=== PATIENT | female | born 1940 | race Caucasian/White ===

== ENCOUNTER 2024-03-16 13:43 | Day surgery (SDC) | payer MEDICARE, OTHER ==
[2024-03-13 09:15] LABS: BASOPHILS % (AUTO) 0.5 % (0-1); EOSINOPHILS # (AUTO) 0.3 X10'3 (0-0.9); EOSINOPHILS % (AUTO) 3.9 % (0-6); HEMATOCRIT 33.5 % (35.0-45.0); HEMOGLOBIN 11.2 g/dl (12.0-16.0); LYMPHOCYTES # (AUTO) 0.8 X10'3 (1.1-4.8); LYMPHOCYTES % (AUTO) 10.8 % (21-51); MEAN CORPUSCULAR HEMOGLOBIN 29.2 PG (27.0-31.0); MEAN CORPUSCULAR HGB CONC 33.4 g/dL (33.0-36.5); MEAN CORPUSCULAR VOLUME 87.4 FL (78-98); MONOCYTES # (AUTO) 0.5 X10'3 (0-0.9); MONOCYTES % (AUTO) 6.6 % (2-12); NEUTROPHILS # (AUTO) 5.5 X10'3 (1.8-7.7); NEUTROPHILS % (AUTO) 78.2 % (42-75); PLATELET COUNT 296 X10'3 (140-440); RED BLOOD COUNT 3.83 X10'6 (4.20-5.60)
[2024-03-13 09:30] LABS: APTT 30 SECONDS (22-32); PROTHROMBIN TIME 10.8 SECONDS (9.0-12.0)
[2024-03-13 09:46] LABS: ALBUMIN 3.5 G/DL (3.4-5.0); ANION GAP 8 (8-16); BLOOD UREA NITROGEN 17 MG/DL (7-18); CALCIUM 9.2 MG/DL (8.5-10.1); CHLORIDE 107 MMOL/L (99-107); CHOLESTEROL 127 MG/DL (0-200); CREATININE 1.06 MG/DL (0.40-0.90); GLUCOSE 103 MG/DL (70-104); HDL CHOLESTEROL 62 MG/DL (35-60); LDL CHOLESTEROL 59 MG/DL (50-100); POTASSIUM 4.4 MMOL/L (3.5-5.1); SODIUM 141 MMOL/L (135-145); TOTAL CARBON DIOXIDE 26.3 MMOL/L (24-32); TRIGLYCERIDES 67 MG/DL (20-135); eGFR 50 ML/MIN
[~2024-03-16] VITALS: Ht 157.5 cm; Wt 56.8 kg
[2024-03-16] VITALS (7 sets, daily range): BP systolic 107–149; BP diastolic 51–90; PULSE 65–106; RESP 16; TEMP 97.9; O2SAT 94–98
[~2024-03-16 13:43] MED LIST: ASPI-1265 PO; ATOR40TA72 PO; CARB1TAB60 PO; CLOP75TA34 PO; OMEP20TA23 PO
[2024-03-16] MEDS ORDERED: CLOP-32 PO (14:04)
[2024-03-16] MEDS ORDERED: LORazepam 0.5 MG tablet PO PRN (14:25)
[2024-03-16] MEDS ORDERED: heparin 1,000unit/ml 10ml vial 10 ML ONE (16:09)
[2024-03-16] MEDS ORDERED: phenylephrine 10mg/ml inj. ONE (16:09)
[2024-03-16] MEDS ORDERED: iohexol 350MG/ML 100ml bottle IV ONE ×3 (16:09→17:16)
[2024-03-16] MEDS: diphenhydrAMINE 25mg capsule PO PRN (16:20)
[2024-03-16] MEDS: normal saline 1,000 ML IV SCH (16:20)
[2024-03-16] MEDS ORDERED: LIDOcaine 1% 30ml preserv. free vial ONE (16:25)
[2024-03-16] MEDS ORDERED: midazolam 1 mg/ML 2ml injection ONE (17:26)
[2024-03-16] MEDS ORDERED: fentaNYL/PF 50MCG/1 ML 2ML syringe ONE (17:26)
[2024-03-16] MEDS ORDERED: clopidogrel 300mg tablet ONE (18:00)
== END 2024-03-16 20:00 | disposition home or self-care (01) ==
LOC: SSTAY O 13:43
PROVIDERS: ATTEND Internal Medicine Interventional Cardiology
DX: I65.23 Occlusion and stenosis of bilateral carotid arteries (principal); I70.8 Atherosclerosis of other arteries; I48.91 Unspecified atrial fibrillation; I49.3 Ventricular premature depolarization; G20.A1 Parkinson's disease without dyskinesia, without mention of fluctuations; I10 Essential (primary) hypertension; E78.5 Hyperlipidemia, unspecified; Z79.01 Long term (current) use of anticoagulants; Z88.6 Allergy status to analgesic agent; Z79.82 Long term (current) use of aspirin; Z98.890 Other specified postprocedural states; Z79.899 Other long term (current) drug therapy
CPT/HCPCS: 36223; 36415; 37236; 80048; 80061; 85025; 85610; 85730; 93005; A6258; C1725; C1751; C1760; C1769; C1876; J1644; J2003; J2250; J2371; J3010; J7030; Q0163; Q9967; Z7610; 36216; 36222; 37238; 75625; 75710; 99152; 99153; J2370

== ENCOUNTER 2024-04-29 11:28 | Outpatient (CLI) | payer MEDICARE, OTHER ==
[~2024-04-29 11:28] MED LIST changes: +CLOP-32 PO; -CLOP75TA34 PO
[2024-04-29 12:33] LABS: ALBUMIN 3.8 G/DL (3.4-5.0); ANION GAP 9 (8-16); BLOOD UREA NITROGEN 18 MG/DL (7-18); BUN/CREATININE RATIO 20.5 (10.0-20.0); CALCIUM 9.4 MG/DL (8.5-10.1); CHLORIDE 105 MMOL/L (99-107); CREATININE 0.88 MG/DL (0.40-0.90); GLUCOSE 96 MG/DL (70-104); POTASSIUM 4.2 MMOL/L (3.5-5.1); SODIUM 140 MMOL/L (135-145); eGFR 62 ML/MIN
== END 2024-04-29 23:59 | disposition home or self-care (01) ==
LOC: LAB 11:28
PROVIDERS: ATTEND Internal Medicine Interventional Cardiology
DX: E78.5 Hyperlipidemia, unspecified (principal)
CPT/HCPCS: 36415; 80048

== ENCOUNTER 2024-11-01 14:47 | Emergency (ER) | payer MEDICARE, OTHER ==
[~2024-11-01] VITALS: Ht 157.5 cm; Wt 56.4 kg
[~2024-11-01 14:47] MED LIST changes: -ASPI-1265 PO; +DABI150C PO; +DILT30TA2 PO; +DOCU100C40 PO; +FURO-149 PO; +LEVO750T68 PO
[2024-11-01 15:05] VITALS: TEMP 98.5
[2024-11-01 15:42] LABS: LEUKOCYTE ESTERASE ,URINE SMALL (Neg); NITRITES, URINE NEGATIVE (Neg); OCCULT BLOOD,URINE NEGATIVE (Neg)
[2024-11-01 15:49] LABS: UA COLLECTION TYPE CLN CATCH MIDSTREAM
[2024-11-01 15:52] LABS: MUCUS STRANDS FEW /LPF (Neg); SQUAMOUS EPITHELIAL CELL,UR MANY /LPF (FEW)
[2024-11-01 16:07] LABS: MEAN PLATELET VOLUME 7.9 FL (7.4-10.4); RED CELL DISTRIBUTION WIDTH 16.9 % (11.5-14.5)
[2024-11-01 16:31] LABS: CREATININE 1.46 MG/DL (0.40-0.90); TOTAL CARBON DIOXIDE 24.1 MMOL/L (24-32); eCRCL 24 ML/MIN; eGFR 34 ML/MIN
[2024-11-01] MEDS ORDERED: iohexol 300mg/ml 100ml inj. ONE (17:06)
--- NOTE | 2024-11-01 18:36 | RADIOLOGY REPORT ---
DI CHEST,TWO VIEWS INDICATION: Productive cough TECHNIQUE: Two views of the chest COMPARISON: DI CHEST,SINGLE VIEW on DOS: 06/14/24 FINDINGS/IMPRESSION: LUNGS: Inconspicuous alveolar opacity possibly located within the right middle lobe MEDIASTINUM: Unremarkable BONES: No acute osseous abnormality OTHER: None
--- NOTE | 2024-11-01 18:40 | ELECTROCARDIOGRAPH REPORT ---
[facility] Test Date: 2024-11-01 Test Time: 18:37:47 Pat Name: DAYAN SALCEDO Department: [facility]- Patient ID: [facility]-[id number] Room: Gender: F Program Director: : 1940 Requested By: GOOD CLEMENTS Order Number: [id number] Reading MD: Measurements Intervals Daniel Rate: 90 P: 0 DC: 0 QRS: 61 QRSD: 84 T: 13 QT: 355 QTc: 435 Interpretive Statements Atrial fibrillation Borderline repolarization abnormality Please click the below link to view image of tracing.
--- NOTE | 2024-11-01 18:49 | RADIOLOGY REPORT ---
COMPUTERIZED TOMOGRAPHY ABDOMEN AND PELVIS WITH CONTRAST REASON FOR EXAM: Pain and pressure in lower abdomen with rectal bleeding. COMPARISON: None TECHNIQUE: The exam was performed on a Multidetector scanner. Spiral scans were acquired from the roz phragm to the symphysis pubis after administration of IV contrast. 2-D coronal and sagittal reformatt ed images were provided. Radiation optimization: All CT scans at this facility use at least one of th mayo dose optimization techniques: Automated exposure control mA and/or kV adjustment per patient size (includes targeted exams where dose is matched to clinical indication) or iterative reconstruction. CONTRAST ADMINISTRATION: 100 mL omnipaque 300 intravenously RADIATION DOSE: CTDI: 22 mGy DLP: 1107 mGy-cm FINDINGS: There is mild dependent atelectasis in bilateral lung bases. There is emphysematous change. There is no pleural effusion. There is no pericardial effusion. There is a large hiatal hernia containing th e majority of the stomach in the posterior mediastinum. The spleen is not enlarged. The liver is normal in size and contour. The portal vein is patent. No calcified gallstone is identified. There is no pericholecystic edema. The pancreas is unremarkable. The right adrenal gland is unremarkable. There is an indeterminate 1.2 cm nodule in the medial limb o f the left adrenal gland (greater than 80 Hounsfield units) that statistically likely represents a li pid poor adrenal adenoma. No solid renal mass is identified. The kidneys enhance symmetrically. Ther e is no hydronephrosis of either kidney. The urinary bladder is significantly distended. The uterus a nd ovaries are within normal limits. There is diffuse mural thickening of the lower portion of the re ctum. There is perirectal inflammatory change. There is extensive sigmoid diverticulosis without aureliano dence of diverticulitis. The colonic stool burden is moderate. The appendix is not seen. No free flui d is identified in the abdomen or pelvis. No pathologic lymphadenopathy is identified by size criteri a. No acute osseous abnormality is identified. There is severe, chronic appearing compression deformi ty of T12. IMPRESSION: Diffuse mural thickening of the lower portion of the rectum with surrounding inflammatory change, con sistent with proctitis. Upon completion of therapy, colonoscopy is recommended to rule out an underly ing mass. Moderate colonic stool burden. Correlate clinically for constipation.
[2024-11-01] MEDS ORDERED: POTA-366 PO (18:50)
[2024-11-01] MEDS ORDERED: DILT240T12 PO (18:52)
[2024-11-01] MEDS ORDERED: FURO40TA4 PO (18:52)
[2024-11-01] MEDS ORDERED: DABI150C PO (18:52)
--- NOTE | 2024-11-01 19:18 | Physician Documentation ---
History of Present Illness ~ Chief Complaint: Weakness Stated Complaint: CONSTIPATION, BLOOD IN STOOL Time Seen by MD: 15:31 Mode of Arrival: POV HPI This is an 84-year-old female that presents to the emergency department for rectal bleeding. Patient also reports that she has had increased cough and congestion over the last 2 days. Patient reports that she has chronic constipa tion issues. Patient reports that she manages that at home with laxatives and stool softeners. Reports that she has been unable to have a complete bowel movement for several days now and was able to pass a small amount of a hard ball of stool yesterday into her brief. Patient also noticed blood at that time in the toilet and then blood on her brief. Patient continues to have small amounts of blood on her brief as she changes them. Reports that she has had increased pressure in her lower abdomen particularly while standing. Patient denies history of hysterectomy or any gynecologic conditions. Patient denies history of hemorrhoids. Reports that she does take blood thinners. Medication Reconciliation Allergies: Coded Allergies: metoprolol (Verified Allergy, Severe, Pt stated causes to me to be out of it, 11/01/24) codeine (Verified Allergy, Unknown, 11/01/24) Scheduled Atorvastatin Calcium (Atorvastatin Calcium), 1 TAB PO DAILY, (Reported) Carbidopa/Levodopa (Carbidopa-Levodopa 25-100 Tab), 1 TAB PO TID, (Reported) Dabigatran Etexilate Mesylate (Pradaxa), 1 CAP PO Q12H, (Reported) Diltiazem HCl (Diltiazem ER), 1 TAB PO DAILY, (Reported) Furosemide (Furosemide), 1 TAB PO DAILY, (Reported) Omeprazole Magnesium (Prilosec Otc), 1 TAB PO DAILY, (Reported) Potassium Chloride (Potassium Chloride), 1 TAB PO DAILY, (Reported) Discontinued Medications Clopidogrel Bisulfate (Plavix), 1 TAB PO DAILY, (Reported) Discontinued Reason: patient no longer taking Dabigatran Etexilate Mesylate (Pradaxa), 1 CAP PO Q12H Discontinued Reason: Other Diltiazem HCl (Diltiazem HCl), 60 MG PO Q6H Discontinued Reason: Other Docusate Sodium (Docusate Sodium), 100 MG PO DAILY Discontinued Reason: patient no longer taking Furosemide (Lasix), 40 MG PO DAILY Discontinued Reason: Other Levofloxacin (Levofloxacin), 750 MG PO DAILY Discontinued Reason: ADR (Adverse Drug Rxn) Review of Systems ROS As stated above in the HPI, otherwise all systems are reviewed and negative. Physical Exam Vital Signs: Temperature: 98.5, Source: Temporal, Heart Rate: 89, Respiratory Rate: 14, BP: 139/74, Pulse Oximetry: 98, Weight: 56.360 Physical Exam VITALS: Reviewed and as above. GENERAL: Alert, no apparent distress. HEENT: Normocephalic, atraumatic, PERRL, EOMI, dry mucosa, no erythema RESPIRATORY: Lungs clear, normal breath sounds, no respiratory distress. 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 (Omnipaque-3 (11/01/24 17:06) Chest,Two Views (11/01/24 18:17) Stat Ekg (11/01/24 18:30) Vital Signs 11/01/24 11/01/24 15:05 16:10 Temp 98.5 Pulse 89 Resp 18 14 B/P (MAP) 139/74 Pulse Ox 98 Laboratory Tests Test 11/01/24 15:20 11/01/24 15:46 11/01/24 18:00 Urine Specimen Description Cln catch midstream Urine Color Yellow Urine Clarity Clear Urine pH 6.0 Urine Specific [place] 1.010 Urine Protein Negative Urine Glucose (UA) Negative Urine Ketones Negative Urine Occult Blood Negative Urine Nitrite Negative Urine Bilirubin Negative Urine Urobilinogen 0.2 Urine Leukocyte Esterase Small H Urine RBC 0-2 Urine WBC 0-4 Urine Squamous Epithelial Cells Many Urine Bacteria Few Urine Mucus Few Urine Culture Indicated Rejected for culture Volume Urine Centrifuged 10 ml Urine Comment White Blood Count 10.3 Red Blood Count 3.97 L Hemoglobin 10.9 L Hematocrit 32.4 L Mean Corpuscular Volume 81.5 Mean Corpuscular Hemoglobin 27.3 Mean Corpuscular Hemoglobin Concent 33.6 Red Cell Distribution Width 16.9 H Platelet Count 462 H Mean Platelet Volume 7.9 Neutrophils (%) (Auto) 83.6 H Lymphocytes (%) (Auto) 6.9 L Monocytes (%) (Auto) 7.9 Eosinophils (%) (Auto) 1.2 Basophils (%) (Auto) 0.4 Neutrophils # (Auto) 8.6 H Lymphocytes # (Auto) 0.7 L Monocytes # (Auto) 0.8 Eosinophils # (Auto) 0.1 Basophils # (Auto) 0.0 CBC Comment Sodium Level 135 Potassium Level 4.0 Chloride Level 99 Carbon Dioxide Level 24.1 Anion Gap 12 Blood Urea Nitrogen 22 H Creatinine 1.46 H Estimated GFR/1.73 m2 34 BUN/Creatinine Ratio 15.1 Glucose Level 117 H Calcium Level 9.5 Total Bilirubin 0.7 Aspartate Amino Transf (AST/SGOT) 18 Alanine Aminotransferase (ALT/SGPT) < 6 L Alkaline Phosphatase 109 Total Protein 7.8 Albumin 4.0 Globulin 3.8 Albumin/Globulin Ratio 1.1 Chemistry Comments SARS-CoV-2 Antigen (Rapid) Negative Medical Decision Making Findings This patient has a presentation consistent with rectal bleeding, most likely due to internal and external hemorrhoids. Low suspicion for inflammatory bowel disorder, rectal ulcer (HIV, syphilis, STI) or rectal foreign body. Presentation not consistent with other acute, emergent causes of upper or lower GI bleeding. No evidence of hemorrhagic shock. CT is negative for obvious signs of bleeding at this time. No signs of prolapse or any other gynecologic concerns at this time. Patient does have a mild urinary tract infection that we will treat her for. Radiologist suggests follow up colonoscopy. Patient's laboratory values are stable and not concerning for anemia at this time. We will follow up with her primary care provider. Patient will return to the emergency department with any worsening or recurrent symptoms or any additional concerning symptoms that we discussed here today i.e. increased bleeding increased abdominal pain shortness of breath lightheadedness or any other concerning symptoms. Differential Dx:Considerations: Include: anemia, CVA, dehydration, dysrhythmia, electrolyte imbalance, encephalopathy, Guillain-[place], hypoglycemia, hypotension, hypovolemia, labyrinthitis, Meniere's disease, myasathenia gravis, myocardial infarction, pulmonary embolus, renal failure, respiratory failure, TIA, VBI, vertigo central, vertigo peripheral, vestibular neuronitis, other Departure Disposition: HOME / SELF CARE / HOMELESS Impression: Primary Impression: Chronic constipation Additional Impressions: External hemorrhoid Internal hemorrhoids Acute urinary tract infection Condition: Stable Discharge Instructions: Urinary Tract Infection, Adult Additional Instructions: This patient has a presentation consistent with rectal bleeding, most likely due to internal and external hemorrhoids. Low suspicion for inflammatory bowel disorder, rectal ulcer (HIV, syphilis, STI) or rectal foreign body. Presentation not consistent with other acute, emergent causes of upper or lower GI bleeding. No evidence of hemorrhagic shock. CT is negative for obvious signs of bleeding at this time. No signs of prolapse or any other gynecologic concerns at this time. Patient does have a mild urinary tract infection that we will treat her for. Radiologist suggests follow up colonoscopy. Patient's laboratory values a re stable and not concerning for anemia at this time. We will follow up with her primary care provider. Patient will return to the emergency department with any worsening or recurrent symptoms or any additional concerning symptoms that we discussed here today i.e. increased bleeding increased abdominal pain shortness of breath lightheadedness or any other concerning symptoms. Please take your antibiotic as prescribed. Please follow up with her primary care provider. Please return to the emergency department with any worsening or recurrent symptoms or any additional concerning symptoms that we discussed here today. Referrals: NO PRIMARY CARE PROVIDER (PCP) Prescriptions Cephalexin*Monohydrate* (Keflex*) 500 Mg Capsule 1 CAP PO QID for 7 Days, #28 CAP Prov: GOOD CLEMENTS 11/01/24 Education Educated: Patient Educated regarding: diagnosis, treatment, need for follow up GOOD CLEMENTS Nov 01, 2024 19:18
[2024-11-01] MEDS ORDERED: CEPH-585 PO (19:20)
[2024-11-01 19:30] VITALS: BP 131/70; PULSE 92; RESP 16; O2SAT 97
== END 2024-11-01 20:44 | disposition home or self-care (01) ==
LOC: ER 14:48
DX: K59.09 Other constipation (principal); K64.8 Other hemorrhoids; I48.91 Unspecified atrial fibrillation; K64.4 Residual hemorrhoidal skin tags; N39.0 Urinary tract infection, site not specified; Z88.5 Allergy status to narcotic agent; Z88.8 Allergy status to other drugs, medicaments and biological substances; Z20.822 Contact with and (suspected) exposure to COVID-19
CPT/HCPCS: 36415; 71046; 74177; 80053; 81001; 85025; 87811; 93005; 99285; Q9967